=== PATIENT | male | born 1995 | race African-American/Black ===

== ENCOUNTER 2021-07-13 13:42 | Emergency (ER) | payer OTHER ==
[2021-07-13 14:11] LABS: Absolute Lymphocytes (CBC) 0.7 K/uL (0.7-4.9); MPV 8.9 fL (7.6-11.3); RBC Red Blood Cell Count 4.85 M/uL (4.33-5.43)
[2021-07-13 14:20] LABS: Protime INR 1.13
[2021-07-13 14:39] LABS: ALT/SGPT 28 U/L (12-78); AST/SGOT 10 U/L (15-37); Alkaline Phosphatase 45 U/L (45-117); BUN Blood Urea Nitrogen 11 mg/dL (7-18); Bicarbonate 27 mmol/L (21-32); Bilirubin Direct 0.1 mg/dL (0-0.2); Bilirubin Total 0.4 mg/dL (0.2-1.0); Glucose Level 83 mg/dL (74-106); Potassium 3.9 mmol/L (3.5-5.1); Protein, Total 7.3 g/dL (6.4-8.2); Sodium Level 140 mmol/L (136-145); Troponin High Sensitivity 4.9 pg/mL (<58.9)
--- NOTE | 2021-07-13 14:50 | RAD REPORT ---
EXAM DESCRIPTION: CT - CTHCSPWOC - 07/13/2021 2:33 pm CLINICAL HISTORY: Trauma, head and neck injury. trauma COMPARISON: No comparisons TECHNIQUE: Axial 5 mm thick images of the head were obtained. Axial 2 mm thick images of the cervical spine were obtained with sagittal and coronal reconstruction images generated and reviewed. All CT scans are performed using dose optimization technique as appropriate and may include automated exposure control or mA/KV adjustment according to patient size. FINDINGS: CT HEAD WITHOUT CONTRAST: No acute hemorrhage, hydrocephalus or extra-axial collection is identified.No areas of brain edema or midline shift. Mild paranasal sinus thickening.The calvarium is intact. CT CERVICAL SPINE WITHOUT CONTRAST: No fracture or subluxation.No prevertebral soft tissues swelling is identified. IMPRESSION: No acute intracranial or cervical spine findings.
--- NOTE | 2021-07-13 14:58 | RAD REPORT ---
EXAM DESCRIPTION: RAD - Foot Right 3 View - 07/13/2021 2:27 pm CLINICAL HISTORY: foot injury COMPARISON: No comparisons FINDINGS/IMPRESSION: No acute fracture. No malalignment. No significant focal degenerative changes.
[2021-07-13 16:33] LABS: Urine Blood Negative (Negative); Urine Glucose Negative (Negative); Urine Protein Negative (Negative); Urine Specific Gravity 1.015 (1.005-1.030)
[2021-07-13 16:49] LABS: Barbiturates NEGATIVE (NEGATIVE); Benzodiazepines NEGATIVE (NEGATIVE); Cocaine NEGATIVE (NEGATIVE); METHAMPHETAM NEGATIVE (NEGATIVE); Methadone NEGATIVE (NEGATIVE); Opiates NEGATIVE (NEGATIVE); Phencyclidine NEGATIVE (NEGATIVE); THC Cannibis NEGATIVE (NEGATIVE)
--- NOTE | 2021-07-13 17:13 | ER ---
Nurse's Notes [facility] Name: Jorge Alberto Gonsalez Age: 25 yrs Sex: Male : 1995 Arrival Date: 07/13/2021 Time: 13:46 Bed 4 Private MD: Diagnosis: Scalp Hematoma;Other seizures;Abrasion, right foot Presentation: 07/13 13:48 Chief complaint: EMS states: they were called to respond to an inmate who had a ap3 seizure. The start of the seizure was unwitnessed, however an officer came up on him during the seizure. Duration of seizure is unknown, fall was unwitnessed. Patient presents to the ED A/O X's 4, contusion on forehead, small lac to right toe and right hand. Patient denies pain at this time. Respirations are even and unlabored. Seizure pads placed on the patients stretcher, and security is at the bedside. EMS states it is reported patient "smoked K2" prior to seizure. Coronavirus screen: At this time, the client does not indicate any symptoms associated with coronavirus-19. Ebola Screen: No symptoms or risks identified at this time. Initial Sepsis Screen: Does the patient meet any 2 criteria? No. Patient's initial sepsis screen is negative. Does the patient have a suspected source of infection? No. Patient's initial sepsis screen is negative. Risk Assessment: Do you want to hurt yourself or someone else? Patient reports no desire to harm self or others. Onset of symptoms was July 13, 2021 at 12:15. Care prior to arrival: Cervical collar in place. IV initiated. 20 GA, in the left antecubital area. 13:48 Method Of Arrival: EMS: [facility] ap3 13:58 Acuity: ARUN 3 ap3 Triage Assessment: 13:56 General: Appears in no apparent distress. comfortable, Behavior is calm, cooperative. ap3 Pain: Denies pain. Neuro: Level of Consciousness is awake, alert, obeys commands, Oriented to person, place, time, situation, Appropriate for age Speech is normal. Cardiovascular: Patient's skin is warm and dry. Respiratory: Airway is patent Respiratory effort is even, unlabored, Respiratory pattern is regular, symmetrical. Historical: - Allergies: 13:55 No Known Allergies; ap3 - Home Meds: 13:55 Keppra Oral [Active]; Dilantin Oral [Active]; ap3 - PMHx: 13:55 Seizure; ap3 - Immunization history:: Client reports receiving the 2nd dose of the Covid vaccine. - Social history:: Smoking status: Patient reports the use of cigarette tobacco products, denies chronic smoking, but will smoke occasionally. Screenin:57 Abuse screen: Denies threats or abuse. Nutritional screening: No deficits noted. ap3 Tuberculosis screening: No symptoms or risk factors identified. Fall Risk Fall in past 12 months (25 points). Secondary diagnosis (15 points) seizures, IV access (20 points). Ambulatory Aid- None/Bed Rest/Nurse Assist (0 pts). Gait- Normal/Bed Rest/Wheelchair (0 pts) Mental Status- Oriented to own ability (0 pts). Total Bustamante Fall Scale indicates High Risk Score (45 or more points). Fall prevention measures have been instituted. Side Rails Up X 2 Placed Close to Nursing Station Frequent Obs/Assessments Occuring Family Present and informed to notify staff if the need to leave the bedside As available patient and family educated on Fall Prevention Program and Strategies. Assessment: 13:50 General: Appears comfortable, Behavior is calm, cooperative. Pain: Complains of pain in aa5 head Pain currently is 5 out of 10 on a pain scale. Quality of pain is described as aching. Neuro: Level of Consciousness is awake, alert, obeys commands, Oriented to person, place, time, situation. Cardiovascular: Heart tones S1 S2 present Rhythm is regular. Respiratory: Airway is patent Respiratory effort is even, unlabored, Respiratory pattern is regular, symmetrical, Breath sounds are clear bilaterally. GI: Abdomen is flat, non-distended, Bowel sounds present X 4 quads. Abd is soft and non tender X 4 quads. : No signs and/or symptoms were reported regarding the genitourinary system. EENT: No signs and/or symptoms were reported regarding the EENT system. Derm: Skin is dry, Skin is normal, Skin temperature is warm Abrasion noted to top of right hand, right great toe, and forehead. Swollen quater sized area noted to forehead. Musculoskeletal: pt with handcuffs and chain restraints to feet by long term guards. 13:50 Reassessment: C-collar in place per PA. aa5 14:51 Reassessment: Pt resting in bed with eyes closed, respirations even and unlabored. aa5 [employer]it[employer]iary guards at bedside. . 14:59 Reassessment: No changes from previously documented assessment. ap3 16:30 Reassessment: States no complaints. Awake and alert. Pt sitting up in bed. . aa5 17:23 Neuro: Level of Consciousness is awake, alert, obeys commands, Oriented to person, aa5 place, time, situation. Respiratory: Airway is patent Respiratory effort is even, unlabored, Respiratory pattern is regular, symmetrical. Derm: Skin is dry, Skin is normal, Skin temperature is warm. Vital Signs: 13:48 BP 114 / 71; Pulse 84; Resp 18 S; Temp 97.1; Pulse Ox 100% ; Weight 96.16 kg; Height 6 aa5 ft. (182.88 cm); 14:51 BP 119 / 68; Pulse 69; Resp 14 S; Pulse Ox 100% on R/A; aa5 14:57 BP 113 / 62; Pulse 65; Pulse Ox 100% on R/A; ap3 16:00 BP 114 / 68; Pulse 70; Resp 16 S; Pulse Ox 99% on R/A; aa5 16:30 BP 111 / 66 Supine; Pulse 72; Pulse Ox 100% on R/A; aa5 16:32 BP 123 / 77 Sitting; Pulse 70; aa5 16:34 BP 142 / 76 Standing; Pulse 73; aa5 17:10 BP 118 / 72; Pulse 68; Resp 16 S; Temp 97.0(TE); Pulse Ox 100% on R/A; aa5 13:48 Body Mass Index 28.75 (96.16 kg, 182.88 cm) aa5 Neva Coma Score: 13:56 Eye Response: spontaneous(4). Verbal Response: oriented(5). Motor Response: obeys ap3 commands(6). Total: 15. ED Course: 13:46 Patient arrived in ED. ap3 13:56 Mitesh Palomo PA is PHCP. jmm 13:56 Barbie Gipson MD is Attending Physician. jmm 13:57 Arm band placed on right wrist. ap3 13:57 Seizure precautions initiated. ap3 13:58 Triage completed. ap3 13:58 Maintain EMS IV. Dressing intact. Good blood return noted. Site clean \\T\\ dry. Gauge \\T\\ ap 3 site: 20g left AC. 14:00 Initial lab(s) drawn, by me, sent to lab. aa5 14:10 Tammie Austin, RN is Primary Nurse. aa5 14:22 Foot Right 3 View XRAY In Process Unspecified. EDMS 14:35 CT Head C Spine In Process Unspecified. EDMS 17:23 No provider procedures requiring assistance completed. IV discontinued, intact, aa5 bleeding controlled, No redness/swelling at site. Pressure dressing applied. Administered Medications: No medications were administered Outcome: 17:13 Discharge ordered by . sedrick 17:23 Discharged to Law Enforcement aa5 17:23 Condition: stable 17:23 Instructed on discharge instructions, follow up and referral plans. Demonstrated understanding of instructions, follow-up care, Awaiting van for transportation back to long term per guards. 19:31 Patient left the ED. as6 Signatures: Dispatcher [employer] EDMS Mitesh Palomo PA PA jmm Calderon, Audri, RN RN aa5 Mera De Jesus RN RN ap3 Javi Boyd RN RN as6 Corrections: (The following items were deleted from the chart) 14:11 13:48 BP 114 / 71; Pulse 84bpm; Pulse Ox 100%; Temp 97.1F; 96.16 kg; Height 6 ft.; BMI: aa5 28.7; ap3 14:34 13:50 Derm: Skin is dry, Skin is normal, Skin temperature is warm aa5 aa5 14:35 13:48 Chief complaint: EMS states: they were called to respond to an inmate who had a ap3 seizure. The start of the seizure was unwitnessed, however an officer came up on him during the seizure. Time of seizure is unknown, fall was unwitnessed. Patient presents to the ED A/O X's 4, contusion on forehead, small lac to right toe and right hand. Patient denies pain at this time. Respirations are even and unlabored. Seizure pads placed on the patients stretcher, and security is at the bedside. EMS states it is reported patient "smoked K2" prior to seizure. ap3 14:53 14:51 Pulse 69bpm; Resp 14bpm; Spontaneous; Pulse Ox 100% RA; aa5 aa5
--- NOTE | 2021-07-13 17:13 | EDPHYS ---
Physician Documentation [facility] Name: Jorge Alberto Gonsalez Age: 25 yrs Sex: Male : 1995 Arrival Date: 07/13/2021 Time: 13:46 Bed 4 Private MD: ED Physician Barbie Gipson HPI: 07/13 13:56 This 25 yrs old Black Male presents to ER via EMS with complaints of Seizure. jmm 13:56 The patient presents after having a single isolated seizure. Character of seizure(s): jmm Loss of consciousness: the patient experienced loss of consciousness, Incontinence: none. Seizure onset: just prior to arrival. Seizure Hx: Cause: epilepsy. Associated injury: Head/face: Other: right foot. Current symptoms: Currently, the patient is not experiencing any symptoms. The patient has experienced similar episodes in the past. Historical: - Allergies: 13:55 No Known Allergies; ap3 - Home Meds: 13:55 Keppra Oral [Active]; Dilantin Oral [Active]; ap3 - PMHx: 13:55 Seizure; ap3 - Immunization history:: Client reports receiving the 2nd dose of the Covid vaccine. - Social history:: Smoking status: Patient reports the use of cigarette tobacco products, denies chronic smoking, but will smoke occasionally. ROS: 13:56 Constitutional: Negative for fever, chills, and weight loss, Cardiovascular: Negative jmm for chest pain, palpitations, and edema, Respiratory: Negative for shortness of breath, cough, wheezing, and pleuritic chest pain. 13:56 Neuro: Positive for seizure activity. 13:56 All other systems are negative. Exam: 13:56 Constitutional: This is a well developed, well nourished patient who is awake, alert, jmm and in no acute distress. Head/Face: abrasion noted to the forehead, hematoma noted to the forehead Eyes: EOMI, no conjunctival erythema appreciated ENT: Moist Mucus Membranes Neck: Trachea midline, Supple Chest/axilla: Normal chest wall appearance and motion. Cardiovascular: Regular rate and rhythm. No edema appreciated Respiratory: Normal respirations, no respiratory distress appreciated Abdomen/GI: Non distended, soft Back: Normal ROM Skin: General appearance color normal MS/ Extremity: Moves all extremities, no obvious deformities appreciated, no edema noted to the lower extremities Neuro: Awake and alert Psych: Behavior is normal, Mood is normal, Patient is cooperative and pleasant Vital Signs: 13:48 BP 114 / 71; Pulse 84; Resp 18 S; Temp 97.1; Pulse Ox 100% ; Weight 96.16 kg; Height 6 aa5 ft. (182.88 cm); 14:51 BP 119 / 68; Pulse 69; Resp 14 S; Pulse Ox 100% on R/A; aa5 14:57 BP 113 / 62; Pulse 65; Pulse Ox 100% on R/A; ap3 16:00 BP 114 / 68; Pulse 70; Resp 16 S; Pulse Ox 99% on R/A; aa5 16:30 BP 111 / 66 Supine; Pulse 72; Pulse Ox 100% on R/A; aa5 16:32 BP 123 / 77 Sitting; Pulse 70; aa5 16:34 BP 142 / 76 Standing; Pulse 73; aa5 17:10 BP 118 / 72; Pulse 68; Resp 16 S; Temp 97.0(TE); Pulse Ox 100% on R/A; aa5 13:48 Body Mass Index 28.75 (96.16 kg, 182.88 cm) aa5 Neva Coma Score: 13:56 Eye Response: spontaneous(4). Verbal Response: oriented(5). Motor Response: obeys ap3 commands(6). Total: 15. MDM: 13:56 Patient medically screened. sedrick 17:10 Data reviewed: vital signs, nurses notes. Counseling: I had a detailed discussion with sedrick the patient and/or guardian regarding: the historical points, exam findings, and any diagnostic results supporting the discharge/admit diagnosis, lab results, radiology results, the need for outpatient follow up, to return to the emergency department if symptoms worsen or persist or if there are any questions or concerns that arise at home. 07/13 13:57 Order name: Acetaminophen; Complete Time: 15:00 [facility] 07/13 13:57 Order name: Basic Metabolic Panel; Complete Time: 15:00 [facility] 07/13 13:57 Order name: CBC with Diff; Complete Time: 14:19 [facility] 07/13 13:57 Order name: ETOH Level; Complete Time: 14:30 [facility] 07/13 13:57 Order name: Hepatic Function; Complete Time: 15:00 [facility] 07/13 13:57 Order name: PT-INR; Complete Time: 14:30 [facility] 07/13 13:57 Order name: Ptt, Activated; Complete Time: 14:30 [facility] 07/13 13:57 Order name: Salicylate; Complete Time: 14:30 [facility] 07/13 13:57 Order name: Urine Drug Screen; Complete Time: 16:54 [facility] 07/13 13:57 Order name: EKG; Complete Time: 13:58 [facility] 07/13 13:57 Order name: Troponin HS; Complete Time: 15:00 [facility] 07/13 13:57 Order name: CT Head C Spine; Complete Time: 15:00 [facility] 07/13 13:59 Order name: Foot Right 3 View XRAY; Complete Time: 15:00 [facility] 07/13 16:33 Order name: Urine Dipstick-Ancillary; Complete Time: 16:43 [facility] 07/13 13:57 Order name: EKG - Nurse/Tech; Complete Time: 14:10 [facility] 07/13 13:57 Order name: IV Saline Lock; Complete Time: 13:59 [facility] 07/13 13:57 Order name: Labs collected and sent; Complete Time: 14:03 [facility] 07/13 13:57 Order name: Urine Dipstick-Ancillary (obtain specimen); Complete Time: 16:32 [facility] 07/13 15:52 Order name: Orthostatics; Complete Time: 16:38 [facility] Administered Medications: No medications were administered Disposition Summary: 07/13/21 17:13 Discharge Ordered Location: Home [facility] Condition: Stable jm Diagnosis - Scalp Hematoma jmm - Other seizures jmm - Abrasion, right foot jm Followup: [facility] - With: Private Physician - When: 2 - 3 days - Reason: Recheck today's complaints, Continuance of care, Re-evaluation by your physician Forms: - Medication Reconciliation Form [facility] - Thank You Letter [facility] - Antibiotic Education [facility] - Prescription Opioid Use [facility] Signatures: Dispatcher [employer] EDMitesh Deleon PA PA jmm Prokisch, Amanda, RN RN ap3 Corrections: (The following items were deleted from the chart) 14:04 13:57 Suicide Screening ([place]) ordered. [facility] [id number]
[2021-07-13 19:43] VITALS: O2SAT 100
[2021-07-13 19:47] VITALS: BP 118/72; TEMP 97
== END 2021-07-13 19:31 | disposition home or self-care (01) ==
LOC: ER 13:42
DX: G40.89 Other seizures (principal); S00.03XA Contusion of scalp, initial encounter; S90.811A Abrasion, right foot, initial encounter; W18.30XA Fall on same level, unspecified, initial encounter; Y93.89 Activity, other specified; Y92.149 Unspecified place in prison as the place of occurrence of the external cause; F17.210 Nicotine dependence, cigarettes, uncomplicated
CPT/HCPCS: 36415; 70450; 72125; 80048; 80076; 80307; 80320; 80329; 81003; 84484; 85025; 85610; 85730; 93005; 99284